=== PATIENT | female | born 1960 | race Caucasian/White ===

== ENCOUNTER 2017-08-29 09:05 | Day surgery (SDC) | payer OTHER ==
[~2017-08-29] VITALS: Ht 165.1 cm; Wt 78.5 kg
[~2017-08-29 09:05] MED LIST: ATOR20TA65 PO; MELA10TA2 PO; MIRT15TA6 PO; OMEP20CA10 PO; OXYB10TA PO; SERT50TA12 PO; SODIUM CHLORIDE 0.9% 1000ML 1,000 ML IV ONE; [UNRECOGNIZED DRUG - CODE] PO
[2017-08-29 10:19] VITALS: BP 107/60
[2017-08-29] MEDS ORDERED: PROPOFOL 1000 MG/100 ML 100 ML IV ONE (10:45)
[2017-08-29 10:57] VITALS: BP 94/59
[2017-08-29] MEDS ORDERED: SIMETHICONE 40 MG/0.6 ML ML ONE (11:03)
== END 2017-08-29 11:44 ==
LOC: ENDO 09:05 → DAH 09:05 → ENDO 11:44
PROVIDERS: ATTEND Internal Medicine Gastroenterology
DX: K21.0 Gastro-esophageal reflux disease with esophagitis (principal); K44.9 Diaphragmatic hernia without obstruction or gangrene; F32.9 Major depressive disorder, single episode, unspecified; Z86.73 Personal history of transient ischemic attack (TIA), and cerebral infarction without residual deficits; E78.5 Hyperlipidemia, unspecified; Z90.49 Acquired absence of other specified parts of digestive tract
CPT/HCPCS: 43248; A4606; J2704; J7030

== ENCOUNTER → 2024-03-26 | Outpatient (CLI) | payer OTHER ==
[~2024-03-26] MED LIST changes: +AEC81 PO; -ATOR20TA65 PO; +LUBI24CA2 PO; -MIRT15TA6 PO; +OMEG-148 PO; -OMEP20CA10 PO; +ONDA-243 PO; -OXYB10TA PO; +OXYB10TA30 PO; +PANT40TA54 PO; +ROSU20TA98 PO; +SERT-439 PO; -SERT50TA12 PO; -SODIUM CHLORIDE 0.9% 1000ML 1,000 ML IV ONE; +SUCR1ORA15 PO; -[UNRECOGNIZED DRUG - CODE] PO
== END | disposition home or self-care (01) ==
LOC: SHCH 08:09
PROVIDERS: ATTEND Internal Medicine Cardiovascular Disease
DX: I87.1 Compression of vein (principal); I87.2 Venous insufficiency (chronic) (peripheral)
CPT/HCPCS: 93970

== ENCOUNTER → 2024-10-10 | Outpatient (CLI) | payer OTHER, MEDICAID ==
[~2024-10-10] MED LIST changes: -LUBI24CA2 PO; +LUBI24CA40 PO
--- NOTE | 2024-10-10 09:17 | HMCIMG ---
Exam Type: CT HEAD/BRAIN W/O CONTRAST Clinical Information: PRENL HX OF TIA Comparison: None CT Dose Index (CTDI): 57.33 mGy Dose Length Product (DLP): 956.79 total mGy-cm Findings: This study was performed using dose reduction techniques to include automated exposure control and/or adjustment of the mA and/or kV according to patient size. The examination is unremarkable except for atrophy Olson-white matter junction is preserved. No intra or extra axial lesions or fluid collections are seen. Specifically, olson and white matter are normal in signal characteristics with normal caliber of ventricles and periventricular cisterns with no evidence of intra or or extra-axial hemorrhage, lacunar infarct, or major territorial infarct, mass, or other abnormality. There are no infarcts. There are no hemorrhages. Periventricular white matter locations are preserved. The orbital contents and structures of the posterior fossa are intact. Impression: Atrophy. This study was performed using dose reduction techniques to include automated exposure control and/or adjustment of the mA and/or kV according to patient size.
--- NOTE | 2024-10-10 09:42 | HMCIMG ---
Carotid Duplex and color-flow Doppler bilateral History: HX OF TIA Comparison: None Findings: No significant plaque is identified on either side. Left Internal Carotid Artery Peak Systolic Velocity (PSV), Left Internal Carotid to Common Carotid Artery peak systolic velocity ratio, Right Internal Carotid Artery Peak Systolic Velocity (PSV) and Right Internal Carotid to Common Carotid Artery peak systolic velocity ratio, are all within normal limits. External carotid artery velocities normal bilaterally. Bilateral vertebral arteries show antegrade flow. Impression: Normal exam. NASCET CRITERIA. The degree of internal carotid artery stenosis is based on NASCET criteria. Normal is no stenosis. Mild is less than 50% stenosis. Moderate is 50-69% stenosis. Severe is 70% to 99% stenosis. Total occlusion is no detectable patent lumen.
== END | disposition home or self-care (01) ==
LOC: RAH 08:29
PROVIDERS: ATTEND Psychiatry & Neurology Neurology
DX: M48.02 Spinal stenosis, cervical region (principal); M48.061 Spinal stenosis, lumbar region without neurogenic claudication; I65.23 Occlusion and stenosis of bilateral carotid arteries; Z86.73 Personal history of transient ischemic attack (TIA), and cerebral infarction without residual deficits
CPT/HCPCS: 70450; 93880